=== PATIENT | male | born 1985 | race Caucasian/White ===

== ENCOUNTER 2019-07-17 20:03 | Inpatient (IN) | payer OTHER ==
[2019-07-17 20:55] VITALS: BMI 26.4
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
[2019-07-17] MEDS ORDERED: MENTHOL/PHENOL 1 EACH UD MM PRN (23:48)
[2019-07-17] MEDS ORDERED: ACETAMINOPHEN 325 MG TABLET (FP) PO PRN ×2 (23:48)
[2019-07-17] MEDS ORDERED: BISMUTH SUBSALICYLATE 524 MG/30 ML UD PO PRN (23:48)
[2019-07-17] MEDS ORDERED: MAGNESIUM CITRATE 300 ML BOTTLE PO PRN (23:48)
[2019-07-17] MEDS ORDERED: MAG HYDROX/AL HYDROX/SIMETH 30 ML UNIT-DOSE CUP PO PRN (23:48)
[2019-07-17] MEDS ORDERED: MAGNESIUM HYDROX 2400MG/30ML ORAL SUSPENSION 30 ML CUP PO PRN (23:48)
[2019-07-18] MEDS ORDERED: METHADONE HCL 10 MG TABLET (FOR DETOX USE ONLY) PO ONE ×2 (00:10→14:00)
--- NOTE | 2019-07-18 09:53 | PN ---
[facility] COWS - Scale Resting Pulse: 0= [place] 80 or Below Sweatin= Chills/Flushing Restless Observation: 0= Sits Still Pupil Size: 1= Pupils >than Normal Bone or Joint Aches: 2= Severe Diffuse Aches Runny Nose/ Eye Tearin= Nasal Congestion GI Upset > 30mins: 2= Nausea/Diarrhea Tremor Observation of Outstretched Hands: 2= Slight Tremor Visible Yawning Observation: 1= 1-2x During Session Anxiety or Irritability: 2=Irritable/Anxious Goose Flesh Skin: 3=Piloerection COWS Score: 15 S Progress Note (SOAP) Subjective: 33 years old male admitted on 07/17/19 for opiate withdrawal sx management treating with methadone detox regiment ate breakfast tolerated food and fluid well resting in bed feeling tired limited conversation with staff Objective: 07/18/19 09:55 Vital Signs Temperature 98.7 F 07/18/19 08:48 Pulse Rate 63 07/18/19 08:48 Respiratory Rate 18 07/18/19 08:48 Blood Pressure 111/61 07/18/19 08:48 O2 Sat by Pulse Oximetry (%) 07/18/19 09:55 lab pending Assessment: 07/18/19 09:55 opiate withdrawal Plan: methadone regiment
[2019-07-18] MEDS: NICOTINE 14 MG/24 HOURS TOPICAL PATCH TD SCH (10:21)
[2019-07-18] MEDS: PRENATAL VITAMINS W/ FOLIC ACID TABLET (FP) PO SCH (10:21)
[2019-07-18] MEDS: METHOCARBAMOL 500 MG TABLET PO PRN (10:22)
[2019-07-18 10:27] LABS: HEMATOCRIT 41.6 % (35.4-49); HEMOGLOBIN 14.1 GM/dL (11.7-16.9); MCH 31.7 pg (25.7-33.7); MCHC 33.9 g/dl (32.0-35.9); MEAN CELL VOLUME 93.5 fl (80-96); MEAN PLT VOLUME 9.5 fl (7.5-11.1); PLATELET COUNT 256 K/MM3 (134-434); RBC 4.45 M/mm3 (4.00-5.60); RDW 14.1 % (11.9-15.9); WHITE BLOOD COUNT 6.2 K/mm3 (4.0-10.0)
[2019-07-18 10:48] LABS: ALBUMIN 3.7 g/dl (3.4-5.0); BILIRUBIN,TOTAL 0.3 mg/dL (0.2-1); BLOOD UREA NITROGEN 12.9 mg/dL (7-18); CALCIUM 9.5 mg/dL (8.5-10.1); CREATININE 0.8 mg/dL (0.55-1.3); POTASSIUM 4.2 mmol/L (3.5-5.1)
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
[2019-07-18] MEDS: cloNIDine HCL 0.1 MG TABLET PO PRN (18:47)
[2019-07-18] MEDS: IBUPROFEN 400 MG TABLET (FP) PO PRN (18:47)
[2019-07-18] MEDS: NICOTINE POLACRILEX 2 MG GUM BUC PRN (19:18)
[2019-07-18] MEDS: THIAMINE HCL 100 MG TABLET (FP) PO SCH (22:12)
[2019-07-19] MEDS: MELATONIN 5 MG TABLETS PO PRN ×2 (00:49→22:11)
[2019-07-19] MEDS ORDERED: METHADONE HCL 5 MG TABLET (FOR DETOX USE ONLY) PO ONE ×2 (05:00→10:00)
[2019-07-19] MEDS: PRENATAL VITAMINS W/ FOLIC ACID TABLET (FP) PO SCH (11:32)
[2019-07-19] MEDS: NICOTINE 14 MG/24 HOURS TOPICAL PATCH TD SCH (11:32)
--- NOTE | 2019-07-19 13:32 | PN ---
S COWS - Scale Resting Pulse: 0= [place] 80 or Below Sweatin= No chills or Flushing Restless Observation: 1= Difficult to Sit Still Pupil Size: 1= Pupils >than Normal Bone or Joint Aches: 1= Mild Discomfort Runny Nose/ Eye Tearin= Runny Nose/Eyes GI Upset > 30mins: 1= Stomach Cramp Tremor Observation of Outstretched Hands: 2= Slight Tremor Visible Yawning Observation: 1= 1-2x During Session Anxiety or Irritability: 2=Irritable/Anxious Goose Flesh Skin: 0=Smooth Skin COWS Score: 11 S Progress Note (SOAP) Subjective: alert,irritable,anxious,interrupted sleep,pain in the body and back Objective: 07/19/19 13:23 alert,irritable,anxious,interrupted sleep 07/19/19 13:43 Vital Signs Temperature 97.7 F 07/19/19 10:07 Pulse Rate 57 L 07/19/19 10:07 Respiratory Rate 16 07/19/19 10:07 Blood Pressure 124/67 07/19/19 10:07 O2 Sat by Pulse Oximetry (%) 07/19/19 13:43 Laboratory Last Values WBC 6.2 K/mm3 (4.0-10.0) 07/18/19 07:45 RBC 4.45 M/mm3 (4.00-5.60) 07/18/19 07:45 Hgb 14.1 GM/dL (11.7-16.9) 07/18/19 07:45 Hct 41.6 % (35.4-49) 07/18/19 07:45 MCV 93.5 fl (80-96) 07/18/19 07:45 MCH 31.7 pg (25.7-33.7) 07/18/19 07:45 MCHC 33.9 g/dl (32.0-35.9) 07/18/19 07:45 RDW 14.1 % (11.9-15.9) 07/18/19 07:45 Plt Count 256 K/MM3 (134-434) 07/18/19 07:45 MPV 9.5 fl (7.5-11.1) 07/18/19 07:45 Sodium 142 mmol/L (136-145) 07/18/19 07:45 Potassium 4.2 mmol/L (3.5-5.1) 07/18/19 07:45 Chloride 107 mmol/L (98-107) 07/18/19 07:45 Carbon Dioxide 28 mmol/L (21-32) 07/18/19 07:45 Anion Gap 7 MMOL/L (8-16) L 07/18/19 07:45 BUN 12.9 mg/dL (7-18) 07/18/19 07:45 Creatinine 0.8 mg/dL (0.55-1.3) 07/18/19 07:45 Est GFR (CKD-EPI)AfAm 135.08 07/18/19 07:45 Est GFR (CKD-EPI)NonAf 116.55 07/18/19 07:45 Random Glucose 93 mg/dL (74-106) 07/18/19 07:45 Calcium 9.5 mg/dL (8.5-10.1) 07/18/19 07:45 Total Bilirubin 0.3 mg/dL (0.2-1) 07/18/19 07:45 AST 15 U/L (15-37) 07/18/19 07:45 ALT 18 U/L (13-61) 07/18/19 07:45 Alkaline Phosphatase 90 U/L (45-117) 07/18/19 07:45 Total Protein 7.0 g/dl (6.4-8.2) 07/18/19 07:45 Albumin 3.7 g/dl (3.4-5.0) 07/18/19 07:45 RPR Titer Nonreactive (NONREACTIVE) 07/18/19 07:45 Assessment: 07/19/19 13:44 withdrawal symptom Plan: continue detox methadone regimen
[2019-07-19] MEDS ORDERED: MAGNESIUM CITRATE 300 ML BOTTLE PO PRN (13:59)
[2019-07-19] MEDS ORDERED: MAG HYDROX/AL HYDROX/SIMETH 30 ML UNIT-DOSE CUP PO PRN (13:59)
[2019-07-19] MEDS ORDERED: MENTHOL/PHENOL 1 EACH UD MM PRN (13:59)
[2019-07-19] MEDS ORDERED: METHOCARBAMOL 500 MG TABLET PO PRN (13:59)
[2019-07-19] MEDS ORDERED: ACETAMINOPHEN 325 MG TABLET (FP) PO PRN ×2 (13:59)
[2019-07-19] MEDS ORDERED: IBUPROFEN 400 MG TABLET (FP) PO PRN (13:59)
[2019-07-19] MEDS ORDERED: MAGNESIUM HYDROX 2400MG/30ML ORAL SUSPENSION 30 ML CUP PO PRN (13:59)
[2019-07-19] MEDS ORDERED: BISMUTH SUBSALICYLATE 524 MG/30 ML UD PO PRN (13:59)
[2019-07-19] MEDS: cloNIDine HCL 0.1 MG TABLET PO PRN ×3 (14:02→22:12)
--- NOTE | 2019-07-19 15:17 | EKG ---
Test Reason : Blood Pressure : / mmHG Vent. Rate : 067 BPM Atrial Rate : 067 BPM P-R Int : 160 ms QRS Dur : 090 ms QT Int : 424 ms P-R-T Axes : -10 073 035 degrees QTc Int : 448 ms NORMAL SINUS RHYTHM NORMAL ECG NO PREVIOUS ECGS AVAILABLE Confirmed by DRAKE BUSH, LORIE ([id number]) on 07/19/2019 3:17:11 PM Referred By: Buck Britton Confirmed By:LORIE JUAN MD
[2019-07-19] MEDS: IBUPROFEN 400 MG TABLET (FP) PO PRN (18:09)
[2019-07-19] MEDS: hydrOXYzine PAMOATE 25 MG CAPSULE (FP) PO PRN (18:09)
[2019-07-19] MEDS: THIAMINE HCL 100 MG TABLET (FP) PO SCH (22:11)
[2019-07-19] MEDS: NICOTINE POLACRILEX 2 MG GUM BUC PRN (23:01)
[2019-07-20] MEDS ORDERED: METHADONE HCL 10 MG TABLET (FOR DETOX USE ONLY) PO ONE ×2 (05:00→10:00)
[2019-07-20] MEDS: NICOTINE 14 MG/24 HOURS TOPICAL PATCH TD SCH (10:17)
[2019-07-20] MEDS: hydrOXYzine PAMOATE 25 MG CAPSULE (FP) PO PRN ×2 (10:17→17:45)
[2019-07-20] MEDS: PRENATAL VITAMINS W/ FOLIC ACID TABLET (FP) PO SCH (10:17)
[2019-07-20] MEDS: METHOCARBAMOL 500 MG TABLET PO PRN ×2 (11:25→17:45)
--- NOTE | 2019-07-20 11:52 | PN ---
BHS COWS - Scale Sweatin= No chills or Flushing Restless Observation: 0= Sits Still Pupil Size: 0= Normal to Room Light Bone or Joint Aches: 1= Mild Discomfort Runny Nose/ Eye Tearin= Nasal Congestion GI Upset > 30mins: 1= Stomach Cramp Tremor Observation of Outstretched Hands: 0= None Yawning Observation: 0= None Anxiety or Irritability: 1=Feels Anxious/Irritable Goose Flesh Skin: 0=Smooth Skin BHS Progress Note (SOAP) Subjective: pt here for OUD- day #4, d/c in 2 days O: Vital Signs - 24 hr 07/19/19 07/19/19 07/20/19 13:44 20:38 00:27 Temperature 98.2 F 99.7 F H Pulse Rate 70 66 Respiratory 18 16 18 Rate Blood Pressure 129/69 112/59 L 07/20/19 07/20/19 07/20/19 03:41 07:15 09:05 Temperature 97.7 F 98.1 F Pulse Rate 51 L 59 L Respiratory 18 18 16 Rate Blood Pressure 103/60 103/70 Laboratory Tests 07/18/19 07/18/19 07/18/19 07:45 07:45 07:45 WBC 6.2 RBC 4.45 Hgb 14.1 Hct 41.6 MCV 93.5 MCH 31.7 MCHC 33.9 RDW 14.1 Plt Count 256 MPV 9.5 Sodium 142 Potassium 4.2 Chloride 107 Carbon Dioxide 28 Anion Gap 7 L BUN 12.9 Creatinine 0.8 Est GFR (CKD-EPI)AfAm 135.08 Est GFR (CKD-EPI)NonAf 116.55 Random Glucose 93 Calcium 9.5 Total Bilirubin 0.3 AST 15 ALT 18 Alkaline Phosphatase 90 Total Protein 7.0 Albumin 3.7 RPR Titer Nonreactive a/p: OUD- pt to d/w counselor re [employer] Rx with methadone/suboxone continue based methadone heroin detox
[2019-07-20] MEDS: NICOTINE POLACRILEX 2 MG GUM BUC PRN (21:26)
[2019-07-20] MEDS: THIAMINE HCL 100 MG TABLET (FP) PO SCH (22:02)
[2019-07-20] MEDS: MELATONIN 5 MG TABLETS PO PRN (22:03)
[2019-07-21] MEDS ORDERED: METHADONE HCL 5 MG TABLET (FOR DETOX USE ONLY) PO ONE ×2 (05:00→06:00)
--- NOTE | 2019-07-21 10:03 | PN ---
BHS COWS - Scale Resting Pulse: 1= [place] 81-100 Sweatin= Chills/Flushing Restless Observation: 0= Sits Still Pupil Size: 0= Normal to Room Light Bone or Joint Aches: 1= Mild Discomfort Runny Nose/ Eye Tearin= Nasal Congestion GI Upset > 30mins: 1= Stomach Cramp Tremor Observation of Outstretched Hands: 0= None Yawning Observation: 0= None Anxiety or Irritability: 1=Feels Anxious/Irritable Goose Flesh Skin: 0=Smooth Skin COWS Score: 6 [facility]HS Progress Note (SOAP) Subjective: Feeling fine today. on methadone detox protocol O: Vital Signs - 24 hr 07/20/19 07/20/19 07/20/19 13:05 16:46 20:30 Temperature 97.5 F L 97.5 F L 97.1 F L Pulse Rate 80 62 73 Respiratory 18 18 20 Rate Blood Pressure 108/53 L 120/66 146/69 07/21/19 05:16 Temperature 97.7 F Pulse Rate 55 L Respiratory 18 Rate Blood Pressure 123/60 Laboratory Tests 07/18/19 07/18/19 07/18/19 07:45 07:45 07:45 WBC 6.2 RBC 4.45 Hgb 14.1 Hct 41.6 MCV 93.5 MCH 31.7 MCHC 33.9 RDW 14.1 Plt Count 256 MPV 9.5 Sodium 142 Potassium 4.2 Chloride 107 Carbon Dioxide 28 Anion Gap 7 L BUN 12.9 Creatinine 0.8 Est GFR (CKD-EPI)AfAm 135.08 Est GFR (CKD-EPI)NonAf 116.55 Random Glucose 93 Calcium 9.5 Total Bilirubin 0.3 AST 15 ALT 18 Alkaline Phosphatase 90 Total Protein 7.0 Albumin 3.7 RPR Titer Nonreactive a/p: OUD - continue detox protocol pt doing well
[2019-07-21] MEDS: NICOTINE 14 MG/24 HOURS TOPICAL PATCH TD SCH (11:45)
[2019-07-21] MEDS: PRENATAL VITAMINS W/ FOLIC ACID TABLET (FP) PO SCH (11:45)
[2019-07-21] MEDS: NICOTINE POLACRILEX 2 MG GUM BUC PRN (11:45)
[2019-07-21] MEDS: hydrOXYzine PAMOATE 25 MG CAPSULE (FP) PO PRN (18:05)
[2019-07-21] MEDS: THIAMINE HCL 100 MG TABLET (FP) PO SCH (22:18)
[2019-07-21] MEDS: MELATONIN 5 MG TABLETS PO PRN (22:19)
[2019-07-22] MEDS: hydrOXYzine PAMOATE 25 MG CAPSULE (FP) PO PRN ×2 (00:03→22:09)
[2019-07-22] MEDS ORDERED: METHADONE HCL 10 MG TABLET (FOR DETOX USE ONLY) PO ONE (05:00)
--- NOTE | 2019-07-22 11:16 | PN ---
S CIWA - CIWA Score Nausea/Vomitin-No Nausea/No Vomiting Muscle Tremors: 2 Anxiety: 2 Agitation: 0-Normal Activity Paroxysmal Sweats: 2 Orientation: 0-Oriented Tacttile Disturbances: 0-None Auditory Disturbances: 0-None Visual Disturbances: 0-None Headache: 0-None Present CIWA-Ar Total Score: 6 [facility] Progress Note (SOAP) Subjective: Patient admitted for opiod detox. Complains of chills, sweating and shakes. Objective: 07/22/19 11:13 Vital Signs Temperature 97.7 F 07/22/19 08:15 Pulse Rate 54 L 07/22/19 08:15 Respiratory Rate 17 07/22/19 08:15 Blood Pressure 108/61 07/22/19 08:15 O2 Sat by Pulse Oximetry (%) Laboratory Tests 07/18/19 07/18/19 07/18/19 07:45 07:45 07:45 WBC 6.2 RBC 4.45 Hgb 14.1 Hct 41.6 MCV 93.5 MCH 31.7 MCHC 33.9 RDW 14.1 Plt Count 256 MPV 9.5 Sodium 142 Potassium 4.2 Chloride 107 Carbon Dioxide 28 Anion Gap 7 L BUN 12.9 Creatinine 0.8 Est GFR (CKD-EPI)AfAm 135.08 Est GFR (CKD-EPI)NonAf 116.55 Random Glucose 93 Calcium 9.5 Total Bilirubin 0.3 AST 15 ALT 18 Alkaline Phosphatase 90 Total Protein 7.0 Albumin 3.7 RPR Titer Nonreactive PE alert and oriented x 3 skin warm, mild facial moisture +perrla, eoms intact bl ext full rom, mild tremors Assessment: 07/22/19 11:15 Opiod withdrawal symptoms Plan: Continue detox encourage oral fluids monitor clinically
[2019-07-22] MEDS: NICOTINE 14 MG/24 HOURS TOPICAL PATCH TD SCH (11:28)
[2019-07-22] MEDS: PRENATAL VITAMINS W/ FOLIC ACID TABLET (FP) PO SCH (11:29)
[2019-07-22] MEDS: NICOTINE POLACRILEX 2 MG GUM BUC PRN (18:54)
[2019-07-22] MEDS: THIAMINE HCL 100 MG TABLET (FP) PO SCH (22:09)
[2019-07-22] MEDS: MELATONIN 5 MG TABLETS PO PRN (22:09)
[2019-07-23] MEDS ORDERED: METHADONE HCL 5 MG TABLET (FOR DETOX USE ONLY) PO ONE (05:00)
[2019-07-23 06:40] VITALS: BP 113/69; PULSE 55; TEMP 97.7
--- NOTE | 2019-07-23 09:10 | PN ---
[facility] CIWA - CIWA Score Nausea/Vomitin-No Nausea/No Vomiting Muscle Tremors: None Anxiety: 1-Mildly Anxious Agitation: 0-Normal Activity Paroxysmal Sweats: No Perspiration Orientation: 0-Oriented Tacttile Disturbances: 0-None Auditory Disturbances: 0-None Visual Disturbances: 0-None Headache: 0-None Present CIWA-Ar Total Score: 1 [facility] COWS - Scale Resting Pulse: 0= [place] 80 or Below Sweatin= No chills or Flushing Restless Observation: 0= Sits Still Pupil Size: 0= Normal to Room Light Bone or Joint Aches: 0= None Runny Nose/ Eye Tearin= None GI Upset > 30mins: 0= None Tremor Observation of Outstretched Hands: 0= None Yawning Observation: 0= None Anxiety or Irritability: 1=Feels Anxious/Irritable Goose Flesh Skin: 0=Smooth Skin COWS Score: 1 [facility] Progress Note (SOAP) Subjective: alert,no complaint Objective: 07/23/19 09:13 Vital Signs Temperature 97.7 F 07/23/19 06:39 Pulse Rate 55 L 07/23/19 06:39 Respiratory Rate 16 07/23/19 06:39 Blood Pressure 113/69 07/23/19 06:39 O2 Sat by Pulse Oximetry (%) Assessment: 07/23/19 09:13 detox completed,no withdrawal symptom Plan: stable for discharge today,follow up with [facility] re[facility]
--- NOTE | 2019-07-23 09:17 | DS ---
[facility] Detox Discharge Summary Admission Date: 07/17/19 Discharge Date: 07/23/19 - History Present History: Alcohol Dependence, Cannabis Dependence, Cocaine Dependence, Opioid Dependence Additional Comments: alert,oreinted x 3 ambulation without difficulty heart normal heart sound lung clear no abdominal pain stable for discharge time spending on discharge 35 mins - Physical Exam Results Vital Signs: Vital Signs Temperature 97.7 F 07/23/19 06:39 Pulse Rate 55 L 07/23/19 06:39 Respiratory Rate 16 07/23/19 06:39 Blood Pressure 113/69 07/23/19 06:39 O2 Sat by Pulse Oximetry (%) Pertinent Admission Physical Exam Findings: withdrawal signs and symptom Laboratory Last Values WBC 6.2 K/mm3 (4.0-10.0) 07/18/19 07:45 RBC 4.45 M/mm3 (4.00-5.60) 07/18/19 07:45 Hgb 14.1 GM/dL (11.7-16.9) 07/18/19 07:45 Hct 41.6 % (35.4-49) 07/18/19 07:45 MCV 93.5 fl (80-96) 07/18/19 07:45 MCH 31.7 pg (25.7-33.7) 07/18/19 07:45 MCHC 33.9 g/dl (32.0-35.9) 07/18/19 07:45 RDW 14.1 % (11.9-15.9) 07/18/19 07:45 Plt Count 256 K/MM3 (134-434) 07/18/19 07:45 MPV 9.5 fl (7.5-11.1) 07/18/19 07:45 Sodium 142 mmol/L (136-145) 07/18/19 07:45 Potassium 4.2 mmol/L (3.5-5.1) 07/18/19 07:45 Chloride 107 mmol/L (98-107) 07/18/19 07:45 Carbon Dioxide 28 mmol/L (21-32) 07/18/19 07:45 Anion Gap 7 MMOL/L (8-16) L 07/18/19 07:45 BUN 12.9 mg/dL (7-18) 07/18/19 07:45 Creatinine 0.8 mg/dL (0.55-1.3) 07/18/19 07:45 Est GFR (CKD-EPI)AfAm 135.08 07/18/19 07:45 Est GFR (CKD-EPI)NonAf 116.55 07/18/19 07:45 Random Glucose 93 mg/dL (74-106) 07/18/19 07:45 Calcium 9.5 mg/dL (8.5-10.1) 07/18/19 07:45 Total Bilirubin 0.3 mg/dL (0.2-1) 07/18/19 07:45 AST 15 U/L (15-37) 07/18/19 07:45 ALT 18 U/L (13-61) 07/18/19 07:45 Alkaline Phosphatase 90 U/L (45-117) 07/18/19 07:45 Total Protein 7.0 g/dl (6.4-8.2) 07/18/19 07:45 Albumin 3.7 g/dl (3.4-5.0) 07/18/19 07:45 RPR Titer Nonreactive (NONREACTIVE) 07/18/19 07:45 Vital Signs Temperature 97.7 F 07/23/19 06:39 Pulse Rate 55 L 07/23/19 06:39 Respiratory Rate 16 07/23/19 06:39 Blood Pressure 113/69 07/23/19 06:39 O2 Sat by Pulse Oximetry (%) - Treatment Hospital Course: Detox Protocol Followed, Detoxed Safely, Responded well, Discharged Condition Good, Rehab Referral Accepted Patient has Accepted a Rehab Referral to: [facility] - Medication Discharge Medications: Ambulatory Orders [facility] [No Known Home Medication] 07/17/19 - Diagnosis (1) Nicotine dependence Current Visit: Yes Status: Acute (2) Opioid dependence with withdrawal Current Visit: Yes Status: Acute (3) Cannabis dependence Current Visit: Yes Status: Chronic (4) Cocaine dependence Current Visit: Yes Status: Chronic Qualifiers: Complication of substance-induced condition: with unspecified complication - AMA Did Patient Leave Against Medical Advice: No
[2019-07-23] MEDS: NICOTINE 14 MG/24 HOURS TOPICAL PATCH TD SCH (11:11)
[2019-07-23] MEDS: PRENATAL VITAMINS W/ FOLIC ACID TABLET (FP) PO SCH (11:11)
== END 2019-07-23 10:16 | disposition home or self-care (01) | DRG 773 ==
LOC: YASAS 20:03 → Y3N 23:50 → Y6N 07-18 14:29
PROVIDERS: ADMIT Allergy & Immunology; ATTEND Allergy & Immunology
PROC: HZ2ZZZZ Detoxification Services for Substance Abuse Treatment (ICD-10-PCS; principal; 2019-07-17)
DX: F11.23 Opioid dependence with withdrawal (principal); F14.20 Cocaine dependence, uncomplicated; F12.20 Cannabis dependence, uncomplicated; F17.210 Nicotine dependence, cigarettes, uncomplicated; F32.9 Major depressive disorder, single episode, unspecified
CPT/HCPCS: 36415; 80053; 85027; 86593; 93005; 93010; J0735